=== PATIENT | female | born 1975 | race Caucasian/White ===

== ENCOUNTER → 2023-04-13 06:53 | Outpatient (REF) | payer BC, SELFPAY | LOC: HWWDC 06:53 | PROVIDERS: ATTENDING PHYSICIAN Nurse Practitioner Adult Health; FAMILY PHYSICIAN Family Medicine Sports Medicine | DX: Z12.31 Encounter for screening mammogram for malignant neoplasm of breast (principal) | CPT/HCPCS: 77063; 77067 ==

== ENCOUNTER → 2023-09-13 09:26 | Outpatient (REF) | payer BC, SELFPAY | LOC: HWRAD 09:26 | PROVIDERS: ATTENDING PHYSICIAN Family Medicine Sports Medicine | DX: N39.0 Urinary tract infection, site not specified (principal) | CPT/HCPCS: 76770 ==